=== PATIENT | male | born 1940 | race Caucasian/White ===

== ENCOUNTER 2016-01-08 13:22 | Outpatient (RCR) | payer MEDICARE, BC ==
[~2016-01-08 13:22] MED LIST: ARICEPT10 MG PO; BREO ELLIPTA; LEXAPRO20 MG PO; LIPITOR20 MG PO; MYSOLINE 5050 MG/TAB PO; NORVASC 5MG5 MG/TAB PO; PENLAC TP; PLAVIX 75MG TAB75 MG PO; PREDNISONE5 MG/5 M1 OU; PRIL40 PO; RT SPIRIVA18 MCG IH; SINGULAIR 110 MG/TAB PO
== END 2016-04-07 | disposition home or self-care (01) ==
LOC: MKS.ESL.PT
DX: I95.1 Orthostatic hypotension (principal); R26.81 Unsteadiness on feet
CPT/HCPCS: G8981-GP; G8982-GP

== ENCOUNTER → 2016-07-15 | Outpatient (CLI) | payer MEDICARE, BC | LOC: COL.RAD 07-13 13:30 | DX: D73.89 Other diseases of spleen (principal) ==

== ENCOUNTER → 2017-01-15 | Outpatient (CLI) | payer MEDICARE, BC | LOC: COL.RAD 14:39 | DX: S06.9X9A Unspecified intracranial injury with loss of consciousness of unspecified duration, initial encounter (principal) ==

== ENCOUNTER 2017-02-15 15:30 | Outpatient (RCR) | payer MEDICARE, BC | END 2017-04-25 | disposition home or self-care (01) | LOC: MKS.ESL.PT | DX: M54.5 Low back pain (principal); G89.21 Chronic pain due to trauma | CPT/HCPCS: G8978-GP; G8979-GP; G8980-GP ==

== ENCOUNTER → 2017-04-23 | Outpatient (CLI) | payer MEDICARE, BC | LOC: COL.CARD 09:04 | DX: S06.0X9S Concussion with loss of consciousness of unspecified duration, sequela (principal) ==

== ENCOUNTER 2017-10-29 07:20 | Outpatient (CLI) | payer MEDICARE, BC ==
[~2017-10-29] VITALS: Ht 175.4 cm; Wt 79.0 kg
[2017-10-29 08:15] VITALS: BP 130/55; PULSE 47; TEMP 97.7
[2017-10-29] MEDS ORDERED: WELLBUTRIN 75MG75 MG PO (08:32)
[2017-10-29] MEDS ORDERED: SINEMET 25/101 UDTAB PO (08:34)
[2017-10-29] MEDS ORDERED: NAMENDA XR 28MG PO (08:36)
[2017-10-29] MEDS ORDERED: PROTONIX20 MG PO (08:37)
[2017-10-29] MEDS ORDERED: PREDFORTE5ML OU (08:37)
[2017-10-29] MEDS ORDERED: INDERAL 20MG20 MG PO (08:39)
[2017-10-29] MEDS ORDERED: FLOMAX 0.40.4 MG/CAP PO (08:40)
[2017-10-29] MEDS ORDERED: STIOLTO RESPIMAT4 GM IH (08:40)
[2017-10-29] MEDS ORDERED: FOLIC ACID0.4 MG PO (08:41)
[2017-10-29] MEDS ORDERED: ZYRTEC 10MG10 MG PO (08:41)
[2017-10-29] MEDS ORDERED: FISH OIL1000 MG PO (08:42)
[2017-10-29] MEDS ORDERED: ADVIL200 MG PO (08:43)
[2017-10-29] MEDS ORDERED: GLUCOSAMINE/CHO1 CA4 PO (08:43)
[2017-10-29 09:21] VITALS: BP 149/62; PULSE 48; TEMP 98.3
[2017-10-29 09:43] VITALS: BP 131/60; PULSE 109
== END 2017-10-29 10:11 | disposition home or self-care (01) ==
LOC: COL.CAR 07:20
DX: R55 Syncope and collapse (principal); J44.9 Chronic obstructive pulmonary disease, unspecified; E78.00 Pure hypercholesterolemia, unspecified; I10 Essential (primary) hypertension; G25.0 Essential tremor; I08.0 Rheumatic disorders of both mitral and aortic valves; G20 Parkinson's disease; Z88.8 Allergy status to other drugs, medicaments and biological substances; Z79.01 Long term (current) use of anticoagulants; Z87.891 Personal history of nicotine dependence; Z86.73 Personal history of transient ischemic attack (TIA), and cerebral infarction without residual deficits

== ENCOUNTER → 2017-11-02 | Outpatient (CLI) | payer MEDICARE, BC ==
[~2017-11-02] MED LIST changes: +ADVIL200 MG PO; +FISH OIL1000 MG PO; +FLOMAX 0.40.4 MG/CAP PO; +FOLIC ACID0.4 MG PO; +GLUCOSAMINE/CHO1 CA4 PO; +INDERAL 20MG20 MG PO; +NAMENDA XR 28MG PO; +PREDFORTE5ML OU; +PROTONIX20 MG PO; +SINEMET 25/101 UDTAB PO; +STIOLTO RESPIMAT4 GM IH; +WELLBUTRIN 75MG75 MG PO; +ZYRTEC 10MG10 MG PO
== END ==
LOC: COL.RAD 07:23
DX: G31.9 Degenerative disease of nervous system, unspecified (principal); I67.82 Cerebral ischemia

== ENCOUNTER 2017-11-04 07:43 | Outpatient (CLI) | payer MEDICARE, BC ==
[~2017-11-04] VITALS: Ht 172.7 cm; Wt 79.0 kg
[2017-11-04 08:29] VITALS: BP 130/61; PULSE 48; TEMP 97.8
[2017-11-04 10:01] VITALS: BP 139/62; PULSE 94
== END 2017-11-04 10:45 | disposition home or self-care (01) ==
LOC: COL.CAR 07:43
DX: R55 Syncope and collapse (principal); J44.9 Chronic obstructive pulmonary disease, unspecified; G25.0 Essential tremor; E78.00 Pure hypercholesterolemia, unspecified; I10 Essential (primary) hypertension; I08.0 Rheumatic disorders of both mitral and aortic valves; G20 Parkinson's disease; Z88.2 Allergy status to sulfonamides; Z88.1 Allergy status to other antibiotic agents; Z88.8 Allergy status to other drugs, medicaments and biological substances; Z79.02 Long term (current) use of antithrombotics/antiplatelets; Z86.73 Personal history of transient ischemic attack (TIA), and cerebral infarction without residual deficits; Z87.891 Personal history of nicotine dependence; Z81.8 Family history of other mental and behavioral disorders

== ENCOUNTER 2018-06-01 13:15 | Outpatient (RCR) | payer MEDICARE, BC | END 2018-06-03 11:28 | disposition home or self-care (01) | LOC: MKS.ESL.PT 13:15 | DX: M47.816 Spondylosis without myelopathy or radiculopathy, lumbar region (principal) ==

== ENCOUNTER 2018-08-04 14:04 | Observation (INO) | payer MEDICARE, BC ==
[~2018-08-04] VITALS: Ht 177.8 cm; Wt 77.8 kg
[~2018-08-04 14:04] MED LIST changes: +CEPHALEXIN500 M1 PO; -WELLBUTRIN 75MG75 MG PO; +WELLBUTRIN SR150 M1 PO
[2018-08-04 14:38] VITALS: BP 130/73; PULSE 61
[2018-08-04 14:58] LABS: COLLECTION METHOD CLEAN CATCH
[2018-08-04 15:02] LABS: BASO # 0.1 (0.0-0.2); BASO % 0.8 % (0.0-2.0); EOS # 0.5 (0.0-0.7); EOS % 6.9 % (0-4.0); GRAN # 3.8 (1.4-6.5); GRAN % 57.4 % (42.2-75.2); HEMATOCRIT 43.8 % (42.0-52.0); HEMOGLOBIN 14.5 g/dl (13.5-18.0); LYMPH # 1.6 (1.2-3.4); LYMPH % 24.6 % (20.0-51.0); MEAN CELL VOLUME 96 fl (80.0-100.0); MEAN CORPUSCULAR HEMOGLOBIN 32 pg (27.0-31.0); MEAN CORPUSCULAR HGB CONC 33 g/dl (33.0-37.0); MONO # 0.7 (0.1-0.6); MONO % 9.8 % (1.7-9.3); PLATELET COUNT 114 K/mm3 (130-400); RED BLOOD COUNT 4.56 M/mm3 (4.20-5.60); REDCELL DISTRIBUTION WIDTH-CV 12.3 % (11.5-14.5)
[2018-08-04 15:06] LABS: PH 7 (5-8); SQUAMOUS EPITHELIAL None Seen /hpf; URINE APPEARANCE Clear; URINE BACTERIA None Seen /hpf; URINE BILIRUBIN Negative (NEGATIVE); URINE BLOOD Negative (NEGATIVE); URINE COLOR Straw; URINE GLUCOSE Negative (NEGATIVE); URINE KETONE Negative (NEGATIVE); URINE LEUKOCYTE ESTERASE Negative (NEGATIVE); URINE NITRATE Negative (NEGATIVE); URINE PROTEIN(semi-quant) Negative (NEGATIVE); URINE RBC None Seen /hpf; URINE UROBILINOGEN Negative (NEGATIVE)
[2018-08-04 15:19] LABS: ALBUMIN 4.1 gm/dL (3.5-5.0); BILIRUBIN,TOTAL 0.5 mg/dL (0.0-1.0); CALCIUM 9.3 mg/dL (8.4-10.2); CREATININE, serum 0.93 (0.66-1.25); POTASSIUM 4.4 mmol/L (3.4-5.0); TOTAL PROTEIN 7.1 gm/dL (6.4-8.2)
[2018-08-04 15:30] LABS: PROTHROMBIN TIME 11.5 SECONDS (9.7-12.8)
--- NOTE | 2018-08-04 20:30 | NUR ---
pt arrived to floor. reports no pain at this time. dizziness reported- fall precautions will be applied. pt uses urinal for frequent urinating. no pain with urination. pt on room air. assessment complete. left chest site swollen from pacemaker placement a couple weeks ago. no SOA. no swelling. no needs at this time. call light in reach
[2018-08-04 20:33] VITALS: BP 125/74; PULSE 80; TEMP 98
[2018-08-04 23:06] VITALS: BP 112/94; PULSE 72; TEMP 98.2
--- NOTE | 2018-08-05 02:56 | NUR ---
PT RESTING IN BED A+OX4. pt confused at times. tele on. pt reports no needs at this time. call light in reach. bed alarm on
[2018-08-05 02:59] VITALS: BP 108/56; PULSE 67; TEMP 98.4
--- NOTE | 2018-08-05 05:25 | NUR ---
PT HAD AN UNEVENTFUL NIGHT. REPORTED NO PAIN. NO NAUSEA. TELE ON. PACEMAKER SITE IS SWOLLEN. REPORTS ITCHING AT SITE. PT ON ROOM AIR. NO NEEDS AT THIS TIME. CALL LIGHT IN REACH
[2018-08-05 07:24] LABS: BASO # 0.1 (0.0-0.2); BASO % 0.9 % (0.0-2.0); EOS # 0.5 (0.0-0.7); EOS % 8.4 % (0-4.0); GRAN # 3.3 (1.4-6.5); GRAN % 57.2 % (42.2-75.2); HEMATOCRIT 38.1 % (42.0-52.0); HEMOGLOBIN 12.7 g/dl (13.5-18.0); LYMPH # 1.3 (1.2-3.4); LYMPH % 21.5 % (20.0-51.0); MEAN CELL VOLUME 97 fl (80.0-100.0); MEAN CORPUSCULAR HEMOGLOBIN 32 pg (27.0-31.0); MEAN CORPUSCULAR HGB CONC 33 g/dl (33.0-37.0); MEAN PLATELET VOLUME 11.9 fl (7.4-10.4); MONO # 0.7 (0.1-0.6); MONO % 11.7 % (1.7-9.3); PLATELET COUNT 109 K/mm3 (130-400); RED BLOOD COUNT 3.94 M/mm3 (4.20-5.60); REDCELL DISTRIBUTION WIDTH-CV 12.6 % (11.5-14.5)
--- NOTE | 2018-08-05 07:27 | NUR ---
Pt left for MRI at this time. configuration technician reports pacemaker tech verified compatibility and is available at this time.
--- NOTE | 2018-08-05 07:28 | NUR ---
report given to JERONIMO Young. pt addyeping
[2018-08-05 07:38] LABS: CALCIUM 8.5 mg/dL (8.4-10.2); CREATININE, serum 0.84 (0.66-1.25); POTASSIUM 3.9 mmol/L (3.4-5.0)
--- NOTE | 2018-08-05 08:01 | NUR ---
Pt unable to have MRI due to recent pacemaker placement. 6 weeks has not passed to allow this. Pt will continue with echo and carotid U/S.
[2018-08-05 09:08] VITALS: BP 136/75; PULSE 64; TEMP 97.9
--- NOTE | 2018-08-05 09:09 | NUR ---
Pt back from procedure at this time.
--- NOTE | 2018-08-05 09:45 | NUR ---
Pt assessment complete. Pt is sitting up in chair eating breakfast, is at bedside. Pt's breathing is even and unlabored on RA. Pt denies SOB. Pt reports some dizziness and weakness when working with PT, he states it is minimally better than yesterday. Pt reports the bottoms of his feet being "more sensitive than usual". Denies N/T. Medications verified with patient and his . No further needs at this time. Call light ROXIMITY diana.
[2018-08-05] MEDS ORDERED: CURCUMIN95% (10:02)
--- NOTE | 2018-08-05 10:38 | NUR ---
Initial visit; Patient thanked Copy Reader for looking in on him and offering God's blessings.
[2018-08-05 11:49] VITALS: BP 114/70; PULSE 65; TEMP 98.4
--- NOTE | 2018-08-05 16:16 | NUR ---
SW met with patient to discuss discharge planning. Patient lives independently at home with is . Patient's PCP is Dr Borden and [facility] Patient does not use any home health services or DME but will likely start using a cane soon. Patient does have DPOA. SW does not anticipate any discharge needs.
--- NOTE | 2018-08-05 16:50 | NUR ---
Discharge instructions and paperwork reviewed with patient and his . All questions answered at this time. IV to RAC dc'd, catheter tip intact. Pt walked out at this time.
== END 2018-08-05 16:51 | disposition home or self-care (01) ==
LOC: COL.ER 14:04 → MEDICAL 18:14
PROVIDERS: Emergency Medicine; Nurse Practitioner; ADMIT Family Medicine
DX: R41.82 Altered mental status, unspecified (principal); G20 Parkinson's disease; I10 Essential (primary) hypertension; E78.5 Hyperlipidemia, unspecified; Z95.0 Presence of cardiac pacemaker; G62.9 Polyneuropathy, unspecified; G25.0 Essential tremor; Z79.52 Long term (current) use of systemic steroids; Z79.02 Long term (current) use of antithrombotics/antiplatelets; Z87.891 Personal history of nicotine dependence; Z88.1 Allergy status to other antibiotic agents; Z88.8 Allergy status to other drugs, medicaments and biological substances; Z88.2 Allergy status to sulfonamides; I34.0 Nonrheumatic mitral (valve) insufficiency
CPT/HCPCS: G0378; J7030

== ENCOUNTER 2021-02-24 15:08 | Outpatient (RCR) | payer MEDICARE, BC ==
[~2021-02-24 15:08] MED LIST changes: +CURCUMIN95%
== END 2021-03-07 | disposition home or self-care (01) ==
LOC: MKS.ESL.PT
DX: G20 Parkinson's disease (principal)

== ENCOUNTER → 2021-07-24 09:44 | Outpatient (RCR) | payer MEDICARE, BC | END | disposition home or self-care (01) | LOC: MKS.ESL.PT 03-08 15:30 | DX: G20 Parkinson's disease (principal) ==

== ENCOUNTER → 2021-08-05 | Outpatient (CLI) | payer MEDICARE, BC | LOC: MHCPAIN 14:59 | DX: M51.36 Other intervertebral disc degeneration, lumbar region (principal); M54.50 Low back pain, unspecified; M47.896 Other spondylosis, lumbar region; Z95.0 Presence of cardiac pacemaker; G20 Parkinson's disease; M53.3 Sacrococcygeal disorders, not elsewhere classified | CPT/HCPCS: G0463 ==

== ENCOUNTER → 2021-10-28 | Outpatient (CLI) | payer MEDICARE, BC | LOC: MHCPAIN 13:02 | DX: M54.50 Low back pain, unspecified (principal); M51.36 Other intervertebral disc degeneration, lumbar region; M53.3 Sacrococcygeal disorders, not elsewhere classified; M47.816 Spondylosis without myelopathy or radiculopathy, lumbar region | CPT/HCPCS: G0463 ==

== ENCOUNTER 2022-11-14 22:46 | Inpatient (IN) | payer MEDICARE, BC ==
[~2022-11-14] VITALS: Wt 80.1 kg
[~2022-11-14 22:46] MED LIST changes: +CELEBREX 1100 MG/CAP PO; +REMERON 15M15 MG/TA1 PO; -WELLBUTRIN SR150 M1 PO; +WELLBUTRIN XL300 M1 PO
[2022-11-14 23:14] LABS: HEMATOCRIT 43.6 % (42.0-52.0); HEMOGLOBIN 14.1 g/dl (13.5-18.0); MEAN CELL VOLUME 95 fl (80.0-100.0); MEAN CORPUSCULAR HEMOGLOBIN 31 pg (27-31); MEAN CORPUSCULAR HGB CONC 32 g/dl (33.0-37.0); MEAN PLATELET VOLUME 12.2 fl (7.4-10.4); PLATELET COUNT 108 K/mm3 (130-400); RED BLOOD COUNT 4.59 M/mm3 (4.20-5.60); REDCELL DISTRIBUTION WIDTH-CV 13.1 % (11.5-14.5)
[2022-11-14 23:23] LABS: ALBUMIN 3.6 gm/dL (3.4-4.8); ALKALINE PHOSPHATASE 95 U/L (40-150); ANION GAP 14 mmol/L (7-16); AST,SGOT 18 U/L (5-34); BILIRUBIN,TOTAL 0.7 mg/dL (0.2-1.2); BLOOD UREA NITROGEN 19 mg/dL (8-26); CALCIUM 9.7 mg/dL (8.4-10.2); CARBON DIOXIDE 23 mmol/L (23-31); CHLORIDE 101 mmol/L (98-107); CREATININE, serum 1.19 mg/dL (0.72-1.25); GLUCOSE 171 mg/dL (70-99); POTASSIUM 3.8 mmol/L (3.5-4.5); SODIUM 138 mmol/L (136-145); TOTAL PROTEIN 7.4 gm/dL (6.2-8.1)
[2022-11-14 23:44] LABS: ALANINE AMINOTRANSFERASE < 6 U/L (0-55)
[2022-11-14 23:45] LABS: TROPONIN-I 0.063 ng/mL (0.00-0.033)
[2022-11-15] VITALS (12 sets, daily range): BP systolic 98–149; BP diastolic 52–90; PULSE 90–109; TEMP 98.4–101.3
[2022-11-15 00:06] LABS: PH 5.5 (5.0-8.5); URINE APPEARANCE Cloudy (CLEAR/HAZY); URINE BLOOD 3+ (NEGATIVE); URINE COLOR Yellow (YELLOW); URINE GLUCOSE Negative (NEGATIVE); URINE NITRATE Positive (NEGATIVE); URINE PROTEIN(semi-quant) 3+ (NEGATIVE); URINE UROBILINOGEN 0.2 E.U/dL (0.2-1.0)
[2022-11-15 00:07] LABS: URINE KETONE 1+ (NEGATIVE)
[2022-11-15 00:38] LABS: ARTERIAL BLD GAS O2 SATURATION 82.6 % (92-100); ARTERIAL BLOOD GAS BASE EXCESS 0.1 (-2-2); ARTERIAL BLOOD GAS HCO3 24.7 meq/L (22-26); ARTERIAL BLOOD GAS PCO2 40.4 mmHg (35-45); ARTERIAL BLOOD GAS pH 7.41 (7.35-7.45)
[2022-11-15 00:39] LABS: ARTERIAL BLOOD GAS PO2 47.8 mmHg (80-100)
[2022-11-15 00:54] LABS: URINE BACTERIA Many /hpf (NONE SEEN); URINE RBC >50 /hpf (0-2); URINE WBC >50 /hpf (0-2)
[2022-11-15 00:55] LABS: MUCOUS Present (NOT PRESENT)
[2022-11-15 01:11] LABS: BAND 9 % (0-10); LYMPHOCYTE 4 % (20.0-51.0); NEUTROPHILS 82 % (42.0-75.2)
[2022-11-15 01:12] LABS: PLATELET ESTIMATE NORMAL (NORMAL)
[2022-11-15] MEDS ORDERED: ATIVAN 0.50.5 MG/TAB PO (01:43)
[2022-11-15] MEDS ORDERED: MELATONIN3 M1 PO (01:43)
--- NOTE | 2022-11-15 01:45 | NUR ---
pt admitted to room 326 from ED per cart, pt unresponsive, non-vocal at this time. pt's has gone home for the night. med rec updated per [facility] paperwork sent with pt. pt on 5L O2 per mask. mata placed in ED, draining clear, yellow urine. IVs x2 in RAC and LH, vanc infusing into RAC on arrival. transferred into bed with slide board and staff x3.
--- NOTE | 2022-11-15 03:08 | NUR ---
TRACY Jorge APRN NOTIFIED OF TROPONIN
--- NOTE | 2022-11-15 06:19 | NUR ---
81 yo male admitted for further care and mangement of altered mental status and acute respiratory failure with additional concerns for sepsis likely of pulmonary source. ht 177.8 cm wt 90.9 kg SCr 1.19 with estimated CrCl 45 ml/min half life 21.1 hours Plan: Patient received an initial loading dose of vancomycin 1500 mg x1 in the ED (16.5 mg/kg); will follow with a maintenance regimen of vancomycin 1500 mg q24h to target a goal trough of 15-20 mcg/ml. Will follow patient's renal function, micro data, and vancomycin levels as indicated to assess for any necessary changes to regimen. Thank you for this dosing consult.
--- NOTE | 2022-11-15 07:40 | NUR ---
Notified Dr. Fuentes elevated Troponin 0.272.
--- NOTE | 2022-11-15 07:48 | NUR ---
Notified RT Suzanne of new EKG order.
--- NOTE | 2022-11-15 08:28 | NUR ---
Pt resting, eyes closed, intermittent snores. Able to respond to yes/no questions and follows commands. Obvious tremors noted, pt responds "yes" to being cold. Is given rectal tylenol for temp and ASA per order after elevated troponin.
[2022-11-15 13:45] LABS: MEAN CELL VOLUME 94 fl (80.0-100.0); MEAN CORPUSCULAR HGB CONC 33 g/dl (33.0-37.0); MEAN PLATELET VOLUME 12.7 fl (7.4-10.4); PLATELET COUNT 84 K/mm3 (130-400); RED BLOOD COUNT 3.49 M/mm3 (4.20-5.60); REDCELL DISTRIBUTION WIDTH-CV 13.2 % (11.5-14.5)
[2022-11-15 13:46] LABS: HEMATOCRIT 32.7 % (42.0-52.0); MEAN CORPUSCULAR HEMOGLOBIN 31 pg (27-31)
[2022-11-15 13:48] LABS: HEMOGLOBIN 10.8 g/dl (13.5-18.0)
[2022-11-15 13:54] LABS: CALCIUM 8.5 mg/dL (8.4-10.2); CREATININE, serum 0.94 mg/dL (0.72-1.25); POTASSIUM 4.2 mmol/L (3.5-4.5)
[2022-11-15 13:57] LABS: BAND 12 % (0-10); LYMPHOCYTE 7 % (20.0-51.0); NEUTROPHILS 78 % (42.0-75.2); PLATELET ESTIMATE DECREASED (NORMAL)
--- NOTE | 2022-11-15 14:30 | NUR ---
SW completed intake with spouse Carmen Holm due to patient having an altared mental state. Spouse provides that patient currently resides at [facility], and utilizes a wheel chair for mobilty. Patient's PCP is Dr. Alcazar, and pharmacy is [facility]. Spouse states that she is the appointed DPOA\HC. Please is for patient to return to [facility] LT. SW will continue to follow. DC plan: back to [facility].
--- NOTE | 2022-11-15 17:00 | NUR ---
Pt awake, talking, answering questions appropriately. Continues on 2L O2 via oxymask. Contact Dr. Fuentes, obtain order for pureed diet. Pt tolerates thin liquids. VO for ST to assess tomorrow.
--- NOTE | 2022-11-15 19:42 | NUR ---
REPORT RECIEVED FROM KASSANDRA DECKER. PT RESTING IN BED. IVF CONTINUE RUNNING @ 150ML/HR. CALL LIGHT IN PLACE. ALL NEEDS MET AT THIS TIME.
--- NOTE | 2022-11-15 20:59 | NUR ---
PT TOLERATED DINNER WELL WITH NO CHOKING OR COUGHING EPISODES. PT DENIES PAIN OR DISCOMFORT AT THIS TIME. SHIFT ASSESSMENT COMPLETE, SEE DOCUMENTATION. CALL LIGHT IN PLACE. ALL NEEDS MET AT THIS TIME.
[2022-11-16] VITALS (13 sets, daily range): BP systolic 103–159; BP diastolic 67–84; PULSE 88–108; TEMP 98.6–100.4
--- NOTE | 2022-11-16 01:03 | NUR ---
PT RIPPED GOOD CATH OUT WITH BALLOON INTACT. PT CLEANED UP AND BEDDING CHANGED. CALLED ELEVATOR OPERATOR SERVICEConcha MOLINA TO SEE IF ANOTHER PLACEMENT WAS NEEDED. ELEVATOR OPERATOR SERVICE STATED TO LEAVE CATHETER OUT AND SEE IF PT URINATES. PT CLEAN AND RESTING IN BED. CALL LIGHT IN PLACE. ALL NEEDS MET AT THIS TIME.
--- NOTE | 2022-11-16 05:56 | NUR ---
PT HAS MINIMAL URINATION SINCE HIS CATHETER CAME OUT. PCT MILO BLADDER SCANNED PT AND HE HAS 181 ML OF FLUID CURRENTLY. NO OTHER CONCERNS AT THIS TIME. CALL LIGHT IN PLACE. ALL NEEDS MET AT THIS TIME.
[2022-11-16 07:20] LABS: HEMATOCRIT 31.7 % (42.0-52.0); HEMOGLOBIN 10.3 g/dl (13.5-18.0); MEAN CELL VOLUME 94 fl (80.0-100.0); MEAN CORPUSCULAR HEMOGLOBIN 31 pg (27-31); MEAN CORPUSCULAR HGB CONC 33 g/dl (33.0-37.0); MEAN PLATELET VOLUME 12.9 fl (7.4-10.4); PLATELET COUNT 70 K/mm3 (130-400); RED BLOOD COUNT 3.37 M/mm3 (4.20-5.60); REDCELL DISTRIBUTION WIDTH-CV 13.1 % (11.5-14.5)
[2022-11-16 07:42] LABS: ALBUMIN 2.3 gm/dL (3.4-4.8); BILIRUBIN,TOTAL 0.4 mg/dL (0.2-1.2); CALCIUM 8.6 mg/dL (8.4-10.2); CREATININE, serum 1.19 mg/dL (0.72-1.25); POTASSIUM 3.9 mmol/L (3.5-4.5); TOTAL PROTEIN 5.2 gm/dL (6.2-8.1)
[2022-11-16 08:38] LABS: BAND 8 % (0-10); EOSINOPHIL 2 % (0-4); HYPOCHROMIA 1+; LYMPHOCYTE 3 % (20.0-51.0); NEUTROPHILS 85 % (42.0-75.2); PLATELET ESTIMATE DECREASED (NORMAL)
--- NOTE | 2022-11-16 09:08 | NUR ---
PT LAYING IN BED ALERT TO SELF. FLACC SCALE USED 2/10 PT MEDICATED PER MAY. MEDS HELD R/T UNKNWOWN SWALLOW STATUS. 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 BED ALARM ON AND CALL LIGHT WITHIN REACH.
[2022-11-16 11:37] LABS: COLLECTION METHOD CATHETER
--- NOTE | 2022-11-16 17:51 | NUR ---
Patient resting in bed. More alert this afternoon/evening. He has tolerated pureed diet with assistance. Patient has been incontinent of urine. Pericares & dry linens provided as needed. Patient not able to understand to void in urinal. Patient has been repositioned in bed throughout the day. Ivf antibioitcs and fluids as ordered. CT scan completed this afternoon. His family visisted today & were able to visit with hospitalist & understanding of plan of care. High fall risk protocol followed
--- NOTE | 2022-11-16 19:13 | NUR ---
REPORT RECIEVED FROM IRAJ DECKER. PT RESTING IN BED. PREVIOUS SHIFT FINISHED CHECK AND CHANGE. EQUAL AND UNLABORED BREATHS NOTED. CALL LIGHT IN PLACE. ALL NEEDS MET AT THIS TIME.
--- NOTE | 2022-11-16 21:16 | NUR ---
SHIFT ASSESSMENT COMPLETE, SEE DOCUMENTATION. PT DENIES PAIN AND CONTINUES TO RESPOND TO CUES. CALL LIGHT IN PLACE. ALL NEEDS MET AT THIS TIME.
[2022-11-17] VITALS (10 sets, daily range): BP systolic 103–180; BP diastolic 77–93; PULSE 76–97; TEMP 98.7–99.2
--- NOTE | 2022-11-17 02:39 | NUR ---
PT CONTINUES TO BE INCONTINENT OF URINE. CLEAN LINENS PROVIDED NEEDED. PT CONTINUES TO FOLLOW CUES. TREMORS NOTED R/T PARKINSON'S. NO OTHER CONCERNS AT THIS TIME. CALL LIGHT IN PLACE. BED ALARM ON. ALL NEEDS MET AT THIS TIME.
--- NOTE | 2022-11-17 06:25 | NUR ---
PT CONTINUES TO BE INCONTINENT AND RECIEVES LINEN CHANGES NEEDED. PT HAS FRESH LINENS AND PERICARE. NO OTHER NEEDS AT THIS TIME.
[2022-11-17 07:12] LABS: HEMOGLOBIN 10.2 g/dl (13.5-18.0); MEAN CELL VOLUME 95 fl (80.0-100.0); MEAN CORPUSCULAR HEMOGLOBIN 31 pg (27-31); MEAN CORPUSCULAR HGB CONC 32 g/dl (33.0-37.0); MEAN PLATELET VOLUME 12.7 fl (7.4-10.4); PLATELET COUNT 67 K/mm3 (130-400); RED BLOOD COUNT 3.32 M/mm3 (4.20-5.60)
[2022-11-17 07:13] LABS: HEMATOCRIT 31.5 % (42.0-52.0)
[2022-11-17 07:35] LABS: CALCIUM 8.6 mg/dL (8.4-10.2); CREATININE, serum 0.85 mg/dL (0.72-1.25); MAGNESIUM 1.9 mg/dL (1.6-2.6); POTASSIUM 3.8 mmol/L (3.5-4.5)
[2022-11-17 07:55] LABS: BAND 8 % (0-10); EOSINOPHIL 2 % (0-4); LYMPHOCYTE 4 % (20.0-51.0); NEUTROPHILS 76 % (42.0-75.2)
[2022-11-17 07:56] LABS: PLATELET ESTIMATE DECREASED (NORMAL)
--- NOTE | 2022-11-17 08:49 | NUR ---
PT IS LAYING IN BED, ALERT AND ORIENTED TO SELF. PT IS VERY CONFUSED. PT SAYS HE HAS PAIN IN THE ABDOMEN BUT IS UNABLE TO RATE IT. CHECKED, CHAGNED, REPOSISTIONED PT. CALL LIGHT WITHIN REACH.
--- NOTE | 2022-11-17 09:56 | NUR ---
Initial visit; Blue Split Trimmer was blessed to see patient and did understand some of what he said. He was receptive to prayer and seemed to want the comfort of Blue Split Trimmer's hand on his as they prayed. He reached for her hand. will continue to visit and mentioned this to Jeff who said "thank you."
--- NOTE | 2022-11-17 19:24 | NUR ---
REPORT RECIEVED FROM BOSTON DECKER. PT RESTING IN BED. PCT RAMIREZ ASSISTED THE PT WITH EATING DINNER. PT TOLERATED WELL. NO S/SX OF PAIN OBSERVED. CALL LIGHT IN PLACE. ALL NEEDS MET AT THIS TIME.
--- NOTE | 2022-11-17 21:44 | NUR ---
SHIFT ASSESSMENT COMPLETE, SEE DOCUMENTATION. PT RESTING IN BED, EQUAL AND UNLABORED BREATHS NOTED. PT TOLERATED HS MEDS WELL IN APPLESAUCE. NO OUTWARD S/SX OF PAIN NOTED. BED ALARM ON. CALL LIGHT IN PLACE. ALL NEEDS MET AT THIS TIME.
[2022-11-18] VITALS (12 sets, daily range): BP systolic 75–182; BP diastolic 72–95; PULSE 69–93; TEMP 97.8–99.8
--- NOTE | 2022-11-18 01:39 | NUR ---
SPOKE WITH LOUIS OMLINA REGARDING PT SYSTOLIC BP OF 169. SHE STATED TO MAKE SURE SYSTOLIC STAYS BELOW 170 AND TO LET HER KNOW IF IT RISES. NO NEW ORDERS AT THIS TIME.
--- NOTE | 2022-11-18 04:36 | NUR ---
PT BP CONTINUES TO SLOWLY INCREASE. SYSTOLIC IS 175 CURRENTLY. CALLED LOUIS MOLINA. AWAITING ORDERS NOW.
--- NOTE | 2022-11-18 06:06 | NUR ---
LOUIS MOLINA ENTERED IN 10MG HYDRALAZINE FOR >170 SYSTOLIC BP. 1ST PRN DOSE ADMINISTERED. NO OTHER NEEDS AT THIS TIME.
[2022-11-18 07:45] LABS: HEMOGLOBIN 11.3 g/dl (13.5-18.0); MEAN CELL VOLUME 92 fl (80.0-100.0); MEAN CORPUSCULAR HEMOGLOBIN 30 pg (27-31); MEAN CORPUSCULAR HGB CONC 33 g/dl (33.0-37.0); MEAN PLATELET VOLUME 12.1 fl (7.4-10.4); PLATELET COUNT 100 K/mm3 (130-400); RED BLOOD COUNT 3.74 M/mm3 (4.20-5.60)
[2022-11-18 07:54] LABS: HEMATOCRIT 34.4 % (42.0-52.0)
[2022-11-18 08:12] LABS: CALCIUM 8.9 mg/dL (8.4-10.2); CREATININE, serum 0.82 mg/dL (0.72-1.25); POTASSIUM 3.7 mmol/L (3.5-4.5)
--- NOTE | 2022-11-18 08:45 | NUR ---
pt resting in bed. full bed change provided. pt responds to touch. unable to give meds due to pt not waking up, breathing is unlabored. blood pressure elevated 182/72. contacted Gema, will monitor. tele in place. external catheter applied to minimize incontinence. IV to INT. fall precautions in place. call light in reach. no needs at this time.
[2022-11-18 08:55] LABS: BAND 7 % (0-10); BASOPHIL 1 % (0-2); EOSINOPHIL 2 % (0-4); LYMPHOCYTE 9 % (20.0-51.0); NEUTROPHILS 65 % (42.0-75.2); PLATELET ESTIMATE NORMAL (NORMAL)
--- NOTE | 2022-11-18 09:44 | NUR ---
Follow-up visit; Patient seemed to not respond this morning when Greenhouse Specialist offered Good morning and God's Blessings. Greenhouse Specialist offered a special blessing.
--- NOTE | 2022-11-18 12:01 | NUR ---
Business Representative was informed by Physician that Patient's family will discuss comfort care v standard care. Patient is anticipated to discharge 11-19-22.
[2022-11-19 03:23] VITALS: BP 119/73; PULSE 99; TEMP 98
--- NOTE | 2022-11-19 06:33 | NUR ---
PT CONFUSED, PULLED OUT INT, WILL NOT REPLACE UNTIL ANTIBIOTIC DUE SINCE PT HAS PULLED OUT SEVERAL ALREADY.
[2022-11-19 07:27] VITALS: BP 139/73; PULSE 93; TEMP 98.7
--- NOTE | 2022-11-19 08:25 | NUR ---
pt more alert this morning, willing to try and eat breakfast this morning. oral care provided. pt incontinent of urine, shante care provided. vss and tele in place. scds to ble. pt ripped out IV last night, no new IV started. fall precautions in place. call light in reach.
[2022-11-19 09:03] VITALS: BP_SYST 139
--- NOTE | 2022-11-19 09:47 | NUR ---
pt ate most of his breakfast and took his pills this morning. therapy in w pt and helped stand on the side of the bed. pt able to follow verbal commands. now at bedside.
--- NOTE | 2022-11-19 10:09 | NUR ---
Dr. Delgado discussed Goals of care w/pt's Carmen, states she prefers to see how she does at LTC facility and make decision there whether and when to go Hospice. He will continue ABX x 1 week. DC back to [facility] today.
[2022-11-19] MEDS ORDERED: CEFTIN500 MG PO (10:11)
[2022-11-19] MEDS ORDERED: TYLENOL SU650 MG/SUP RC (10:11)
[2022-11-19 11:34] VITALS: BP 112/61; PULSE 84; TEMP 99.3
--- NOTE | 2022-11-19 11:37 | NUR ---
Flying I Instructor collaborated with Treatment Team during rounding to assess Patient for discharge readiness. Patient is assessed to be ready for discharge today. Physician reports that Family is choosing to continue standard care and return to [facility]. [facility]
--- NOTE | 2022-11-19 12:23 | NUR ---
Sicial Worker was informed by Mone with [facility] that transportation is scheduled at 1330. ROBI contacted community development aide who agrees with this discharge time. Manager Product Management sent discharge orders to [facility].
[2022-11-19 13:20] VITALS: BP_SYST 112
[2022-11-19 13:35] VITALS: TEMP 98.9
--- NOTE | 2022-11-19 14:00 | NUR ---
pt transferred to wheelchair to discharge to [facility]. pt belongings and paperwork sent with patient. report called to Madelyn, all questions answered.
== END 2022-11-19 14:00 | DRG 871 ==
LOC: COL.ER 22:46 → SURG 11-15 00:51
PROVIDERS: Emergency Medicine; Nurse Practitioner Family; Physician Assistant; ADMIT Hospitalist
DX: A41.9 Sepsis, unspecified organism (principal); G93.41 Metabolic encephalopathy; J18.9 Pneumonia, unspecified organism; I21.4 Non-ST elevation (NSTEMI) myocardial infarction; J96.01 Acute respiratory failure with hypoxia; N39.0 Urinary tract infection, site not specified; I10 Essential (primary) hypertension; G20 Parkinson's disease; F03.90 Unspecified dementia, unspecified severity, without behavioral disturbance, psychotic disturbance, mood disturbance, and anxiety; Z95.0 Presence of cardiac pacemaker; R13.10 Dysphagia, unspecified; G47.33 Obstructive sleep apnea (adult) (pediatric); D69.6 Thrombocytopenia, unspecified; K21.9 Gastro-esophageal reflux disease without esophagitis; N40.0 Benign prostatic hyperplasia without lower urinary tract symptoms; F32.A Depression, unspecified
CPT/HCPCS: J0360; J0692; J0696; J3370; J7050; J7120; Q9967